=== PATIENT | male | born 1945 | race Caucasian/White ===

== ENCOUNTER 2017-07-15 20:34 | Inpatient (IN) | payer MEDICARE ==
[~2017-07-15] VITALS: Ht 175.3 cm; Wt 83.9 kg
[2017-07-15] MEDS ORDERED: LOSA100T36 PO (20:49)
[2017-07-15] MEDS ORDERED: LABE20TAB PO (20:49)
[2017-07-15] MEDS ORDERED: HYDR12.55 PO (20:49)
[2017-07-15] MEDS ORDERED: AMLO10TA2 PO (20:49)
[2017-07-15] MEDS ORDERED: BRIM1OPD OU (20:51)
[2017-07-15] MEDS ORDERED: BIMA01SOL OU (20:51)
[2017-07-15] MEDS ORDERED: TIMO0.5S4 OU (20:51)
[2017-07-15 21:41] LABS: BASO # 0.1 K/mm3 (0.0-0.2); BASO % 0.4 % (0.0-1.0); EOS # 0.3 K/mm3 (0.0-0.50); EOS % 1.7 % (0.0-3.0); LARGE UNSTAINED CELL # 0.1 K/mm3 (0.0-0.4); LARGE UNSTAINED CELL % 0.4 % (0.0-4.0); LYMPH % 6.3 % (24.0-44.0); MEAN CORPUSCULAR HEMOGLOBIN 30.6 pg (27.0-33.0); MEAN CORPUSCULAR HGB CONC 33.7 g/dl (32.0-36.5); MEAN CORPUSCULAR VOLUME 90.6 fl (80.0-96.0); MONO # 0.7 K/mm3 (0.0-0.8); MONO % 4.8 % (0.0-5.0); NEUTROPHILS # 13.3 K/mm3 (1.8-7.7); NEUTROPHILS % 86.5 % (36.0-66.0); PLATELET COUNT, AUTOMATED 224 k/mm3 (150-450); WHITE BLOOD COUNT 15.4 K/mm3 (4.0-10.0)
[2017-07-15 21:59] LABS: ALBUMIN 3.9 GM/DL (3.2-5.2); ALBUMIN/GLOBULIN RATIO 1.03 (1.00-1.93); ALKALINE PHOSPHATASE 77 U/L (45-117); ALT/SGPT 39 U/L (12-78); ANION GAP 6 MEQ/L (8-16); AST/SGOT 29 U/L (15-37); BILIRUBIN,TOTAL 0.4 MG/DL (0.2-1.0); BLOOD UREA NITROGEN 18 MG/DL (7-18); CALCIUM LEVEL 8.9 MG/DL (8.8-10.2); CARBON DIOXIDE LEVEL 27 MEQ/L (21-32); CHLORIDE LEVEL 107 MEQ/L (98-107); CREATININE FOR GFR 0.88 MG/DL (0.70-1.30); GLOMERULAR FILTRATION RATE > 60.0 (>42); GLUCOSE, FASTING 120 MG/DL (83-110); POTASSIUM SERUM 4.3 MEQ/L (3.5-5.1); SODIUM LEVEL 140 MEQ/L (136-145); TOTAL PROTEIN 7.7 GM/DL (6.4-8.2)
[2017-07-15] MEDS ORDERED: ISOVUE-370 76% 100ML VIAL (Q9967) As Ordered ONE (22:01)
[2017-07-15] MEDS ORDERED: PERCOCET 5MG/325MG TAB PO ONE (22:45)
--- NOTE | 2017-07-15 22:50 | REP ---
Clinical: Acute lower abdominal pain. Technique: Axial contrast enhanced images from the lung bases to the pubic symphysis using oral and 100 ml Isovue 370 intravenous contrast material with coronal and sagittal re-formations. Impression: Moderate amount of inflammatory stranding surrounds the pancreas and duodenum with small amounts of fluid extending into the pelvis. The pancreatic parenchyma is homogeneous and without evidence for necrosis, cystic change or obvious low density mass lesion. No drainable collection or abscess is identified. No free air to suggest perforation. Liver, spleen, gallbladder, bilateral adrenal glands and kidneys are normal. The enteric system is without obstruction or further acute inflammatory process. Normal terminal ileum is identified in the right lower quadrant a dilated fecal filled appendix measuring 14 mm in the right lower quadrant cannot be excluded (images 97 - 109) but without significant periappendiceal stranding. Pelvis demonstrates normal bladder and enlarged prostate gland which measures 4.8 cm maximal diameter. Atherosclerotic changes of the aorta and vasculature noted without aneurysm. Musculoskeletal structures demonstrate age-related degenerative changes without focal osseous abnormality. Impression: 1. Peripancreatic and duodenal inflammatory stranding with small amount of fluid extending into the pelvis is most compatible with acute pancreatitis/duodenitis. No evidence for drainable collection/abscess, pancreatic necrosis or ischemia. 2. A distended fecal filled appendix measuring 14 mm diameter is identified in the right lower quadrant without significant periappendiceal stranding to suggest acute appendicitis. However, close clinical observation may be warranted. Signed by Gordo Hansen MD 07/15/2017 10:41 P
[2017-07-15] MEDS ORDERED: NS 1,000 ML IV ONE (23:15)
[2017-07-15] MEDS ORDERED: ONDANSETRON 4MG/2ML VIAL (J2405) IV ONE (23:15)
[2017-07-15 23:17] LABS: AMYLASE 967 U/L (25-115)
[2017-07-15] MEDS ORDERED: ALPH0.156 OU (23:53)
[2017-07-15] MEDS ORDERED: FAMO20TA PO (23:53)
[2017-07-16] MEDS ORDERED: PERCOCET 5MG/325MG TAB PO ONE (00:30)
[2017-07-16] MEDS ORDERED: MORPHINE 2 MG/ML 1ML SYRINGE IV PRN (01:30)
[2017-07-16] MEDS ORDERED: ACETAMINOPHEN TAB 650MG DOSE (2X325MG) PO PRN (01:30)
[2017-07-16] MEDS: NS 1,000 ML IV SCH ×6 (03:38→22:43)
[2017-07-16] MEDS: amLODIPine 10 MG TAB PO SCH ×2 (03:39→21:10)
[2017-07-16] MEDS: LOSARTAN 50 MG TAB PO SCH ×2 (03:39→21:10)
--- NOTE | 2017-07-16 03:51 | HPEPDOC ---
General Date of Admission 07/16/17 Primary Care Physician: Mohan Gutierrez Attending Physician: JANNET VERGARA DO Chief Complaint The patient is a 72-year-old male admitted with a reason for visit of Abd Pain. History of Present Illness Patient is a 72 yo male with past medical history significant for HTN and increased intraocular eye pressure presents to the ER with abdominal pain. The pain started yesterday morning, 07/15/17. Just all of a sudden. Patient was not doing anything at the time. 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 Has had bloating and burping for past several days. Asked if he was hydrating, mentioned probably not enough. Denies having pain like this before. Described the pain as "wanting to throw up". Admits to nausea but no vomiting. The pain started upper abdomen and sides but now is mostly lower abdomen. Denies it radiating anywhere. Patient tried cuate seltzer and Rolaids, did not help much. Had a small BM this morning and one yesterday. Denies blood or black stool. Usually goes everyday. Noted that his BMs for past couple days have been smaller than normal. Denies diarrhea. Did not try anything at home for the pain. Has not had much to eat yesterday. Had half cup coffee and half bagel this morning. Last thing he ate was mary anne vickie and slice of toast in the evening yesterday. Has had stomach aches and cramps in the past but usually go away with some pepto bismol, never had discomfort like this. Ct scan of abdomen and pelvis was performed in ER. Showed peripancreatic and duodenal inflammatory stranding with small amount of fluid extending into the pelvis. No evidence of pancreatic abscess or necrosis. Patient received some Percocet in the ER. States that it does help some but still has pain. He also received Zofran in the ER for the nausea. Patient was admitted to hospitalist service. Home Medications Scheduled Amlodipine Besylate (Amlodipine Besylate) 10 Mg Tab, 10 MG PO QHS, (Reported) Bimatoprost (Lumigan) 50 Drop/2.5 Ml Niurka, 1 DROP OU QHS, (Reported) Brimonidine Tartrate 0.1% (Alphagan P) 100 Drop/5 Ml Soln, 1 DROP OU BID, ( Reported) Famotidine (Pepcid) 20 Mg Tab, 20 MG PO BID, (Reported) Labetalol HCl (Labetalol HCl) 200 Mg Tab, 200 MG PO BID, (Reported) Losartan Potassium (Losartan Potassium) 100 Mg Tab, 100 MG PO QHS, (Reported) Timolol Maleate (Timoptic) 0.5 % Niurka, 1 DROP OU BID, (Reported) Allergies Coded Allergies: No Known Allergies (Unverified , 07/15/17) Past Medical History Medical History Hypertension High eye pressure Surgical History Eye surgery, 1950 Social History Patient is 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 Now for hobby has a small barn with some heifers. Denies daily etoh use. Last 20 years drinks a bottle of beer every 1-3 months. Former smoker, quit in his early 40s, smoked 1 PPD for 20 years. Denies illegal or illicit drugs. Denies marijuana. No cats or dogs. Denies recent travel. No sick contacts. Lives at home with . Has son that lives in [place], [place]. Review of Symptoms Other systems Gen.:No fevers. Admits to chills, rigors. Head: No headache, trauma. Eyes:Wears glasses. No blurriness or double vision. Nose:No rhinorrhea. Ears:No change in hearing. Throat: No painful or difficulty swallowing. Cardiovascular: No chest pains. Does feel skipped beat every now and then. Respiratory:No shortness of breath, cough. Abdomen:Pos per HPI. :No dysuria, frequency. No hematuria. Extremity:No weakness. MSK:Aches and pains all over. Neuro:No numbness. Psych:No anxiety, depression. Physical Examination General Exam: Positive: Alert, Cooperative, No Acute Distress Eye Exam: Positive: PERRLA, Conjunctiva & lids normal, EOMI, Negative: Sclera icteric, Ptosis ENT Exam: Positive: Atraumatic, Pharynx Normal, Tongue Midline, Nares Patent, Negative: Mucous membr. moist/pink Neck Exam: Positive: Supple, Negative: JVD, thyromegaly Chest Exam: Positive: Clear to auscultation, Normal air movement, Negative: Rales, Rhonchi Heart Exam: Positive: Murmurs (Systolic murmur, 2/6. Best heard right sternal border. ) Abdomen Exam: Positive: Normal bowel sounds, Soft, Tenderness (Diffuse tenderness.), Other (No rigidity or guarding. ), Negative: Hepatospenomegaly Extremity Exam: Positive: Normal pulses, Negative: Clubbing, Cyanosis, Edema Skin Exam: Positive: Nl turgor and temperature, Negative: Rash, Breakdown Neuro Exam: Positive: Normal Gait, Normal Speech Psych Exam: Positive: Mental status NL Vital Signs Vital Signs Date Time Temp Pulse Resp B/P (MAP) Pulse Ox O2 Delivery O2 Flow Rate FiO2 07/16/17 00:24 18 07/15/17 21:38 07/15/17 20:34 98.4 69 98 Room Air Laboratory Data Labs 24H Laboratory Tests 2 07/15/17 21:22: White Blood Count 15.4H, Red Blood Count 4.99, Hemoglobin 15.3, Hematocrit 45.3 , Mean Corpuscular Volume 90.6, Mean Corpuscular Hemoglobin 30.6, Mean Corpuscular Hemoglobin Concent 33.7, Red Cell Distribution Width 13.0, Platelet Count 224, Neutrophils (%) (Auto) 86.5H, Lymphocytes (%) (Auto) 6.3L, Monocytes (%) (Auto) 4.8, Eosinophils (%) (Auto) 1.7, Basophils (%) (Auto) 0.4, Neutrophils # (Auto) 13.3H, Lymphocytes # (Auto) 1.0L, Monocytes # (Auto) 0.7, Eosinophils # (Auto) 0.3, Basophils # (Auto) 0.1, Large Unclassified Cells % 0.4 , Large Unclassified Cells # 0.1, Anion Gap 6L, Glomerular Filtration Rate > 60.0, Blood Urea Nitrogen 18, Creatinine 0.88, Sodium Level 140, Potassium Level 4.3, Chloride Level 107, Carbon Dioxide Level 27, Calcium Level 8.9, Aspartate Amino Transf (AST/SGOT) 29, Alanine Aminotransferase (ALT/SGPT) 39, Alkaline Phosphatase 77, Total Bilirubin 0.4, Total Protein 7.7, Albumin 3.9, Albumin/Globulin Ratio 1.03, Amylase Level 967H, Lipase 9553H CBC/BMP Laboratory Tests 07/15/17 21:22 Red Blood Count 4.99, Mean Corpuscular Volume 90.6, Mean Corpuscular Hemoglobin 30.6, Mean Corpuscular Hemoglobin Concent 33.7, Red Cell Distribution Width 13.0 , Neutrophils (%) (Auto) 86.5 H, Lymphocytes (%) (Auto) 6.3 L, Monocytes (%) ( Auto) 4.8, Eosinophils (%) (Auto) 1.7, Basophils (%) (Auto) 0.4, Neutrophils # ( Auto) 13.3 H, Lymphocytes # (Auto) 1.0 L, Monocytes # (Auto) 0.7, Eosinophils # (Auto) 0.3, Basophils # (Auto) 0.1, Calcium Level 8.9, Aspartate Amino Transf ( AST/SGOT) 29, Alanine Aminotransferase (ALT/SGPT) 39, Alkaline Phosphatase 77, Total Bilirubin 0.4, Total Protein 7.7, Albumin 3.9 Assessment/Plan Pancreatitis Most likely cause of patient's abdominal pain and nausea. Patient has elevated amylase and lipase as well as evidence on CT scan of abdomen and pelvis. Ordering C reactive protein. Trend this for sign of inflammation. Patient has leukocytosis. Following WBC count, repeat in the morning. Checking lactic acid. Patient has had some bloating and belching. Placing NG tube to decompress abdomen. NPO diet. IV fluids normal saline. Item Value Date Time Amylase Level 967 U/L H 07/15/172121 Lipase 9553 U/L H 07/15/172121 Ordering triglyceride level as possible cause of pancreatitis. Patient denies drinking etoh, only drinks once every couple months. On ct scan with iv contrast the enteric system is without obstruction or further acute inflammatory process. LFTs within normal limits. Patient's calcium was within normal limits. No symptoms of hypercalcemia. Duodenitis May also be cause of patient's abdominal pain. Patient had evidence of duodenal inflammation on CT scan. Ordering Helicobacter pylori stool sample and starting patient on protonix. H. pylori is a possible cause of duodenitis. Another cause is possible bacterial infection. Starting patient on cipro and flagyl. Blood cultures x2 pending. Leukocytosis Most likely secondary to pancreatitis/duodenitis. Repeat in the morning. Item Value Date Time White Blood Count 15.4 K/mm3 H 07/15/172121 Heart Murmur Patient has a murmur heard on exam. Does not remember being told has a murmur. Does not remember having ECHO in past. Possible new onset murmur. Ordering ECHO. HTN Continue patient's home medications amlodipine, lorsartan, labetolol. Monitor BP. Increased eye pressure Patient follows up with eye center. Continue home medications. Plan / VTE VTE Prophylaxis Ordered?: Yes (Teds. Cameronx. ) Plan Plan Obtaining recent progress from Dr. Gutierrez's office. Patient is currently NPO. Patient will be followed by on 07/16/17. GME ATTESTATION GME ATTESTATION My preceptor for this patient encounter was physically present in the building during the encounter and was fully available. As needed, all aspects of the patient interview, examination, medical decision making process, and medical care plan development were reviewed and approved by the preceptor. Preceptor is aware and concurs with the plan as stated in the body of this note and will attest to such by his/her cosignature. PRISCILLA YEUNG DO Jul 16, 2017 02:38
[2017-07-16 04:00] VITALS: BP 178/78
[2017-07-16] MEDS ORDERED: metroNIDAZOLE 500 MG in APPROPRIATE DILUENT 1 EA IV SCH (04:00)
[2017-07-16] MEDS ORDERED: CIPROFLOXACIN 400 MG in APPROPRIATE DILUENT 1 EA IV SCH (05:00)
[2017-07-16 06:00] VITALS: BP 148/78
[2017-07-16 06:48] LABS: BASO # 0.1 K/mm3 (0.0-0.2); BASO % 0.5 % (0.0-1.0); EOS % 0.3 % (0.0-3.0); LARGE UNSTAINED CELL # 0.1 K/mm3 (0.0-0.4); LARGE UNSTAINED CELL % 0.6 % (0.0-4.0); LYMPH # 1.1 K/mm3 (1.5-4.5); LYMPH % 8.5 % (24.0-44.0); MEAN CORPUSCULAR HEMOGLOBIN 31.3 pg (27.0-33.0); MEAN CORPUSCULAR HGB CONC 34.8 g/dl (32.0-36.5); MEAN CORPUSCULAR VOLUME 89.9 fl (80.0-96.0); MONO # 0.7 K/mm3 (0.0-0.8); MONO % 5.2 % (0.0-5.0); NEUTROPHILS # 10.9 K/mm3 (1.8-7.7); PLATELET COUNT, AUTOMATED 211 k/mm3 (150-450); RED CELL DISTRIBUTION WIDTH 12.8 % (11.5-14.5); WHITE BLOOD COUNT 12.9 K/mm3 (4.0-10.0)
[2017-07-16 07:11] LABS: ALBUMIN 3.3 GM/DL (3.2-5.2); ALBUMIN/GLOBULIN RATIO 1.14 (1.00-1.93); ALKALINE PHOSPHATASE 61 U/L (45-117); ALT/SGPT 29 U/L (12-78); AMYLASE 979 U/L (25-115); ANION GAP 9 MEQ/L (8-16); AST/SGOT 20 U/L (15-37); BILIRUBIN,TOTAL 0.5 MG/DL (0.2-1.0); BLOOD UREA NITROGEN 19 MG/DL (7-18); CALCIUM LEVEL 8.4 MG/DL (8.8-10.2); CARBON DIOXIDE LEVEL 26 MEQ/L (21-32); CHLORIDE LEVEL 108 MEQ/L (98-107); CREATININE FOR GFR 0.77 MG/DL (0.70-1.30); GLOMERULAR FILTRATION RATE > 60.0 (>42); GLUCOSE, FASTING 106 MG/DL (83-110); POTASSIUM SERUM 3.9 MEQ/L (3.5-5.1); SODIUM LEVEL 143 MEQ/L (136-145); TOTAL PROTEIN 6.2 GM/DL (6.4-8.2)
[2017-07-16] MEDS: MEROPENEM INJ 1 GM in D5W MINI-BAG PLUS 100 ML IV SCH ×3 (08:07→23:32)
[2017-07-16] MEDS: PANTOPRAZOLE 40MG INJ (PROTONIX) (C9113) IV SCH ×2 (09:39→21:11)
[2017-07-16] MEDS: ONDANSETRON 4MG/2ML VIAL (J2405) IV PRN (09:39)
[2017-07-16] MEDS: PERCOCET 5MG/325MG TAB PO PRN (09:39)
[2017-07-16] MEDS: BRIMONIDINE 0.1% OPHTH SOLN 5 ML OU SCH ×2 (09:44→21:10)
[2017-07-16] MEDS: LABETALOL 200 MG TAB PO SCH ×2 (09:44→21:10)
[2017-07-16] MEDS: TIMOLOL MALEATE 0.5% OPHTH SOLN 5 ML OU SCH ×2 (09:44→21:00)
--- NOTE | 2017-07-16 09:44 | REP ---
Clinical: Abdominal pain. Acute pancreatitis. Technique: Real time kim scale evaluation using curved array transducer. Findings: Liver is normal in contour, size, echogenicity without focal hepatic lesion identified. The gallbladder is unremarkable and without gallstones, wall thickening, or sonographic Armas sign. Trace pericholecystic fluid likely related to known pancreatitis. No biliary ductal dilatation is appreciated and the common bile duct measures 6.9 mm diameter. The right kidney is normal in reniform shape without hydronephrosis and measures 10.7 x 6.3 x 5.9 cm. Pancreas is incompletely evaluated due to interposed bowel gas. Impression: Normal appearance to the liver, gallbladder, and right kidney. Pancreas is incompletely evaluated due to interposed bowel gas. Trace fluid adjacent to the gallbladder. Signed by Gordo Hansen MD 07/16/2017 09:36 A
[2017-07-16] MEDS: ENOXAPARIN 40 MG/0.4 ML SYRINGE (J1650) SC SCH (09:46)
[2017-07-16 10:29] LABS: CONTROL LINE HPYORI INT CTR LINE PRESENT
--- NOTE | 2017-07-16 12:41 | REP ---
Clinical: Foreign body. Technique: Single supine view of the abdomen and pelvis demonstrates relatively nonspecific bowel gas pattern. Contrast noted in the bladder. No metallic foreign body appreciated. Skeletal structures demonstrate age-related degenerative changes. Impression: Nonspecific bowel gas pattern. No foreign body identified. Signed by Gordo Hansen MD 07/16/2017 12:32 P
--- NOTE | 2017-07-16 12:42 | REP ---
Clinical: Foreign body . Comparison: 02/14/2011 . Technique: PA and lateral. Findings: The mediastinum and cardiac silhouette are normal. The lung gan are clear and without acute consolidation, effusion, or pneumothorax. The skeletal structures are intact and normal. No foreign body identified. Impression: 1. No acute cardiopulmonary process. 2. No foreign body identified. Signed by Gordo Hansen MD 07/16/2017 12:34 P
--- NOTE | 2017-07-16 12:58 | IPN ---
DATE OF SERVICE: 07/16/2017 The patient was seen and examined, admitted last night. The patient admitted overnight with reported improved abdominal pain and improved nausea. No vomiting. Has not had a bowel movement in 3 days. Denies any chest pain, pressure, or discomfort, fevers, or chills. Vital signs: Temperature 98.8, pulse 80, respiration 18, blood pressure 162/76, pulse oximetry 95% on room air. Laboratory: WBC 12.9, hemoglobin and hematocrit 14.3/41, platelets 211. Chemistry: Sodium 143, potassium 3.9, chloride 108, bicarbonate 26, BUN 19, creatinine 0.77, C-reactive protein 3.47, lipase 6845. General: The patient alert and oriented times three. No acute distress. HEENT: Normocephalic, atraumatic. Pulmonary: Bilaterally clear to auscultation. Cardiac: Regular rate and rhythm. 2/6 systolic murmur. Abdomen: Soft, hypoactive bowel sounds, tympanitic to percussion. No rebound. No guarding. Diffuse tenderness to palpation, predominantly upper abdominal quadrants. Extremities: No clubbing, cyanosis, or edema. Assessment and plan: This is a 72-year-old male patient with underlying medical history of hypertension with history of increased intraocular pressures in the eyes, possibly glaucoma, presented to the emergency department (ED) with sudden onset of nausea and abdominal pain, achy and crampy in nature. Problems: 1. Pancreatitis. The patient with elevated amylase and lipase with epigastric abdominal pain. Intravenous (IV) fluids. Nothing by mouth for now. Lactic acid appreciated. C-reactive protein appreciated. Empirically started on meropenem. The patient has no history of alcohol use. Liver function test within normal limits. Ultrasound of right upper quadrant appreciated. No stones detected. No biliary dilatation. 2. Duodenitis. Have maybe evidence on CT scan. Possibly the inciting event of pancreatitis, given the patient's duodenum on CT scan appears to be inflamed. Helicobacter (H.) pylori immunoglobulin G (IgG) is positive. Empirically started on clarithromycin, and the patient is already on meropenem and Protonix. Once the patient's symptoms improve, will switch from meropenem to amoxicillin for a 14-day course. Followup blood culture. General surgery consulted. 3. Ileus. Nothing by mouth for now. Monitor bowel sounds. General surgery consulted. CT scan appreciated. 4. Leukocytosis, likely secondary to pancreatitis and duodenitis. IV fluids as ordered. Followup cultures. 5. Hypertension. Continue current medication. The patient on amlodipine and losartan and labetalol. Monitor blood pressure. 6. History of glaucoma. Continue home medication. Outpatient followup. 7. Dilated appendix with fecal matters in the appendix. No evidence of acute appendicitis on CT scan. Consulted general surgery for close monitoring. As per Dr. Lew, the patient likely needs a colonoscopy as outpatient. Will followup surgery recommendation. 8. Deep venous thrombosis (DVT) prophylaxis. Lovenox subcutaneous. DISPOSITION PLANNING: Pending clinical improvement.
[2017-07-16 14:00] VITALS: BP 153/72
--- NOTE | 2017-07-16 14:31 | ECHO ---
DATE OF PROCEDURE: 07/16/2017 REFERRING PHYSICIAN: Michael Stewart DO and Gisella May MD. Study was performed on 07/16/2017 for indication heart murmur. Patient measures 69 inches and weighs 185 pounds. DIMENSIONS: IVS 0.9 LV 4.9 LVPW 1.1 LA 4.0 Aorta 3.6 Ascending aorta 3.8 RV 2.8 FINDINGS: The study is of good technical quality. Left ventricle is of normal size and systolic function with estimated left ventricular ejection fraction (LVEF) 60-65%. Right ventricle is also normal size and systolic function. Left atrium is mildly enlarged. Right atrium is probably normal. Aortic valve is mildly sclerotic, but it has three cusps and grossly preserved mobility. Mitral tricuspid valves appear normal. Pulmonic valve was not well seen. No pericardial effusion is noted. Inferior vena cava is mildly dilated but does collapse with respiration indicative of likely mildly elevated central venous pressure. Mildly dilated ascending aorta (3.8cm). Doppler interrogation of aortic valve reveals mild insufficiency and trivial stenosis (mean gradient 11 mmHg). There is trace mitral insufficiency and trace tricuspid insufficiency. Calculated pulmonary artery pressure is around 40 mmHg. Mitral inflow pattern and tissue Doppler imaging of mitral annulus reveal grade 1 diastolic dysfunction (tissue Doppler velocities are relatively preserved. E prime septal and lateral are 3.7 and 10.2 cm/s, respectively). CONCLUSIONS: 1. Study is of good technical quality. 2. Normal left ventricular (LV) size and systolic function, grade 1 diastolic dysfunction. 3. Aortic sclerosis resulting in minimal stenosis and mild insufficiency. 4. Trace mitral and tricuspid insufficiency. 5. Probably mildly elevated central venous pressure (CVP) and at least mild and more likely moderate pulmonary hypertension. 6. Mildly dilated ascending aorta (3.8cm). COMMENT: Subacute bacterial endocarditis (SBE) prophylaxis not recommended. MTDD
--- NOTE | 2017-07-16 16:48 | REP ---
Clinical: Acute pancreatitis. Technique: Noncontrast MRCP. Findings: Inflammatory stranding and scattered fluid is identified within the visualized upper abdomen extending along the bilateral visualized pericolic gutters predominately surrounding the body and tail of the pancreas and consistent with acute pancreatitis. No focal drainable collection is appreciated. Evaluation of the biliary system demonstrates normal gallbladder and biliary tree including intrahepatic and extrahepatic biliary duct through the head of the pancreas. No evidence for cholelithiasis or choledocholithiasis is appreciated and no significant gallbladder wall thickening is identified. Impression: 1. Inflammatory stranding and scattered fluid in the visualized upper abdomen extending along the bilateral pericolic gutters consistent with a history of acute pancreatitis. No drainable collection or obvious cystic lesions are appreciated. 2. Normal appearance to the gallbladder and biliary system without evidence for cholelithiasis or choledocholithiasis. Signed by Gordo Hansen MD 07/16/2017 04:40 P
[2017-07-16] MEDS: CLARITHROMYCIN 250 MG TAB PO SCH (21:10)
[2017-07-16 22:00] VITALS: BP 153/75
[2017-07-17] MEDS: NS 1,000 ML IV SCH ×4 (02:55→13:45)
[2017-07-17 06:00] VITALS: BP 138/65
[2017-07-17 06:05] LABS: BASO % 0.2 % (0.0-1.0); EOS # 0.1 K/mm3 (0.0-0.50); EOS % 0.4 % (0.0-3.0); LARGE UNSTAINED CELL # 0.1 K/mm3 (0.0-0.4); LARGE UNSTAINED CELL % 0.9 % (0.0-4.0); LYMPH # 1.3 K/mm3 (1.5-4.5); LYMPH % 8.1 % (24.0-44.0); MEAN CORPUSCULAR HEMOGLOBIN 31.8 pg (27.0-33.0); MEAN CORPUSCULAR HGB CONC 35.1 g/dl (32.0-36.5); MEAN CORPUSCULAR VOLUME 90.5 fl (80.0-96.0); MONO % 6.2 % (0.0-5.0); NEUTROPHILS # 13.1 K/mm3 (1.8-7.7); NEUTROPHILS % 84.2 % (36.0-66.0); PLATELET COUNT, AUTOMATED 185 k/mm3 (150-450); RED CELL DISTRIBUTION WIDTH 12.7 % (11.5-14.5); WHITE BLOOD COUNT 15.6 K/mm3 (4.0-10.0)
[2017-07-17 06:23] LABS: ALBUMIN 2.7 GM/DL (3.2-5.2); ALBUMIN/GLOBULIN RATIO 0.87 (1.00-1.93); ALKALINE PHOSPHATASE 52 U/L (45-117); ALT/SGPT 23 U/L (12-78); ANION GAP 5 MEQ/L (8-16); AST/SGOT 21 U/L (15-37); BILIRUBIN,TOTAL 0.7 MG/DL (0.2-1.0); BLOOD UREA NITROGEN 16 MG/DL (7-18); CALCIUM LEVEL 7.7 MG/DL (8.8-10.2); CARBON DIOXIDE LEVEL 25 MEQ/L (21-32); CHLORIDE LEVEL 110 MEQ/L (98-107); CREATININE FOR GFR 0.76 MG/DL (0.70-1.30); GLOMERULAR FILTRATION RATE > 60.0 (>42); GLUCOSE, FASTING 80 MG/DL (83-110); POTASSIUM SERUM 3.7 MEQ/L (3.5-5.1); SODIUM LEVEL 140 MEQ/L (136-145); TOTAL PROTEIN 5.8 GM/DL (6.4-8.2)
[2017-07-17] MEDS: TIMOLOL MALEATE 0.5% OPHTH SOLN 5 ML OU SCH ×2 (09:00→20:05)
[2017-07-17] MEDS: BRIMONIDINE 0.1% OPHTH SOLN 5 ML OU SCH ×2 (09:19→20:05)
[2017-07-17] MEDS: CLARITHROMYCIN 250 MG TAB PO SCH ×2 (09:20→21:07)
[2017-07-17] MEDS: PANTOPRAZOLE 40MG INJ (PROTONIX) (C9113) IV SCH ×2 (09:20→21:07)
[2017-07-17] MEDS: MEROPENEM INJ 1 GM in D5W MINI-BAG PLUS 100 ML IV SCH ×3 (09:20→23:39)
[2017-07-17] MEDS: ENOXAPARIN 40 MG/0.4 ML SYRINGE (J1650) SC SCH (09:31)
[2017-07-17] MEDS: LABETALOL 200 MG TAB PO SCH ×2 (09:31→21:07)
--- NOTE | 2017-07-17 11:19 | IPN ---
DATE OF SERVICE: 07/17/2017 SUBJECTIVE: Patient feels a little better today. He said that he has been passing gas and also had a small bowel movement this morning. He does have a little soreness still in his belly but is improving. Did have a low grade fever this morning. No chest pain or shortness of breath. No nausea or vomiting or diarrhea. Patient has been tolerating sips of water. Says is starting to feel a little hungry. Will start the patient on clear liquids diet. If patient can tolerate clear liquids, will advance to full liquids during dinner. PHYSICAL EXAMINATION: Vital signs. Temperature 98.8, pulse 72, respiratory rate 18, blood pressure 162/76, pulse oximetry 95% in room air. General: Patient awake, alert, oriented times three, sitting up in bed, in no acute distress. HEENT: Normocephalic, atraumatic. Moist mucous membranes. Anicteric eyes. Chest: Clear to auscultation. Cardiovascular: S1, S2, regular. No rub, murmur or gallop. Abdomen: Soft. Mildly tender to deep palpation. No guarding or rigidity. Bowel sounds present. Extremities: No edema. LABORATORY DATA: WBC 15.6, hemoglobin 13.2, platelets 185. Sodium 140, potassium 3.7, chloride 110, bicarbonate 25, BUN 16, creatinine 0.7, glucose 80, calcium 7.7. Liver function tests are normal. Albumin 2.7. Lipase 1902. ASSESSMENT AND PLAN: This is a 72-year-old male admitted for acute pancreatitis. Plan: 1. Acute pancreatitis. Patient seems to be improving. Will advance diet to clear liquids. Decrease intravenous (IV) fluids. Empirically has been on meropenem. Once the patient is taking oral diet, will change him to oral antibiotics to cover for Helicobacter (H) pylori. Magnetic resonance cholangiopancreatography (MRCP) of the abdomen did not show any cholelithiasis or obstruction of the biliary system. There was no obstruction of the pancreatic duct system. Patient does not carry any history of alcohol abuse. At this point, the etiology of pancreatitis has not been found. Could be due to duodenitis with local inflammation of the duodenal wall causing obstruction of the opening of the pancreatic duct. 2. Duodenitis. As seen by seen CT scan. H pylori immunoglobulin G (IgG) has been positive in stool. Immunoglobulin M (IgM) is in process. Patient has been started on treatment for H pylori. Patient is on pantoprazole and clarithromycin, as well as on meropenem. Once meropenem is discontinued, we can change the patient oral amoxicillin to cover treatment for H pylori for a total of 14 day course. Blood cultures have been negative. 3. History of glaucoma. Will continue with home medications. 4. Dilated appendix with fecal matter. However, there are no signs of appendicitis in the CT scan. Patient was evaluated by Dr. Lew from surgery and as per him, patient needs a colonoscopy as an outpatient. 5. Hypertension. Will continue on amlodipine, losartan and labetalol. 6. Leukocytosis. Secondary to pancreatitis and duodenitis. Blood cultures have been negative to date. Will continue to monitor the leukocytosis. 7. Deep venous thrombosis (DVT) prophylaxis has been ordered. 8. Gastrointestinal (GI) prophylaxis. Patient is on pantoprazole twice a day. 9. Ileus. Improving. Will advance diet to clear liquids and if tolerates, will change to full liquids at dinner. MTDD
[2017-07-17 14:00] VITALS: BP 131/64
[2017-07-17] MEDS: ONDANSETRON 4MG/2ML VIAL (J2405) IV PRN (19:48)
[2017-07-17 21:00] VITALS: BP 156/74
[2017-07-17] MEDS: amLODIPine 10 MG TAB PO SCH (21:07)
[2017-07-17] MEDS: LOSARTAN 50 MG TAB PO SCH (21:08)
[2017-07-17] MEDS: PERCOCET 5MG/325MG TAB PO PRN (22:32)
[2017-07-18] MEDS: NS 1,000 ML IV SCH (04:56)
[2017-07-18 06:00] VITALS: BP 133/69
[2017-07-18 08:10] VITALS: BP 152/72
[2017-07-18 08:25] LABS: BASO % 0.2 % (0.0-1.0); EOS # 0.3 K/mm3 (0.0-0.50); EOS % 2.2 % (0.0-3.0); LARGE UNSTAINED CELL # 0.1 K/mm3 (0.0-0.4); LARGE UNSTAINED CELL % 0.8 % (0.0-4.0); LYMPH # 1.3 K/mm3 (1.5-4.5); LYMPH % 7.8 % (24.0-44.0); MEAN CORPUSCULAR HEMOGLOBIN 30.3 pg (27.0-33.0); MEAN CORPUSCULAR HGB CONC 33.2 g/dl (32.0-36.5); MEAN CORPUSCULAR VOLUME 91.1 fl (80.0-96.0); MONO % 6.3 % (0.0-5.0); NEUTROPHILS # 12.5 K/mm3 (1.8-7.7); NEUTROPHILS % 82.7 % (36.0-66.0); PLATELET COUNT, AUTOMATED 188 k/mm3 (150-450); RED CELL DISTRIBUTION WIDTH 12.8 % (11.5-14.5); WHITE BLOOD COUNT 15.1 K/mm3 (4.0-10.0)
[2017-07-18 09:16] LABS: ALBUMIN 2.6 GM/DL (3.2-5.2); ALBUMIN/GLOBULIN RATIO 0.76 (1.00-1.93); ALKALINE PHOSPHATASE 51 U/L (45-117); ALT/SGPT 21 U/L (12-78); ANION GAP 7 MEQ/L (8-16); AST/SGOT 28 U/L (15-37); BILIRUBIN,TOTAL 0.7 MG/DL (0.2-1.0); BLOOD UREA NITROGEN 14 MG/DL (7-18); CARBON DIOXIDE LEVEL 25 MEQ/L (21-32); CHLORIDE LEVEL 109 MEQ/L (98-107); CREATININE FOR GFR 0.75 MG/DL (0.70-1.30); GLOMERULAR FILTRATION RATE > 60.0 (>42); GLUCOSE, FASTING 96 MG/DL (83-110); POTASSIUM SERUM 3.7 MEQ/L (3.5-5.1); SODIUM LEVEL 141 MEQ/L (136-145)
[2017-07-18] MEDS: CLARITHROMYCIN 250 MG TAB PO SCH ×2 (09:44→20:42)
[2017-07-18] MEDS: LABETALOL 200 MG TAB PO SCH ×2 (09:44→20:42)
[2017-07-18] MEDS: BRIMONIDINE 0.1% OPHTH SOLN 5 ML OU SCH ×2 (09:44→20:43)
[2017-07-18] MEDS: ENOXAPARIN 40 MG/0.4 ML SYRINGE (J1650) SC SCH (09:44)
[2017-07-18] MEDS: TIMOLOL MALEATE 0.5% OPHTH SOLN 5 ML OU SCH ×2 (09:45→20:43)
[2017-07-18] MEDS: PANTOPRAZOLE 40MG TAB (PROTONIX) PO SCH ×2 (09:48→20:40)
[2017-07-18] MEDS: AMOXICILLIN 500 MG CAP PO SCH ×2 (09:59→20:42)
--- NOTE | 2017-07-18 10:20 | IPN ---
DATE: 07/18/2017 SUBJECTIVE: The patient was seen and examined this morning. The patient said that he is feeling a lot better. He has been tolerating his full liquid diet and has been advanced to a 2 gram sodium diet. The patient states that last night, he had one episode of pain in his abdomen that needed pain medication. But since this morning, he has been feeling like he did before he got sick. The patient is able to ambulate around the room without any shortness of breath, chest pain or chest discomfort. The patient states he just has a dull achy pain in his abdomen that is currently manageable without any medication. The patient denies any nausea, vomiting or diarrhea. He admits to having two bowel movements two days prior. Per nursing, they had no overnight events. The patient's IV sites were blown. All of his IV medications were converted to by mouth medications and his diet has been advanced from a full liquid diet to a 2 gram sodium diet. OBJECTIVE: VITALS: Temperature 99.4, afebrile overnight. Pulse 81, respiratory rate of 18 , blood pressure 152/72 (98). Pulse oximetry of 97 on room air. GENERAL: Patient is awake, alert and oriented times three, sitting up in the bed in no acute distress. HEENT: Normocephalic atraumatic. Moist mucous membranes. CARDIOVASCULAR: S1, S2, regular sinus rhythm. No rubs, murmurs, or gallops are appreciated. CHEST: Clear to auscultation bilaterally. No rhonchi or wheezing. ABDOMEN: Positive bowel sounds in all four quadrants. Slightly distended abdomen which the patients states is improving. No tenderness on soft palpation. The patient states he just has a dull achy pain at the epigastric area that is improving. No guarding or rigidity. EXTREMITIES: No peripheral edema appreciated. LABS: WBC 15.1, hemoglobin 12.6, hematocrit 37.8, platelets 188, neutrophils 82.7, lymphocytes 7.8, monocytes of 6.2. Chemistries: Sodium 141, potassium 2.7, chloride 109, carbon dioxide 25, BUN 14, creatinine of 0.75, anion gap 7, fasting glucose 96, calcium 8.0, total bilirubin 0.7, AST 28, ALT 21, alkaline phosphatase of 51. Total protein 6.0, and albumin 2.6, lipase 594. Blood cultures: No growth after 48 hours. No new imaging was done. ASSESSMENT: This is a 72-year-old male admitted for acute pancreatitis. PLAN: 1. Acute pancreatitis: The patient is currently improving. Is tolerating a full liquid diet. Has advanced diet to 2 gram sodium diet. Empirically has been covered with meropenem which has been stopped this morning. Has started patient on amoxicillin 1 gram twice a day for the next 14 days for coverage of H pylori. Magnetic resonance cholangiopancreatography MRCP of the abdomen did not show any cholelithiasis or obstruction of the biliary system. There was no obstruction of the pancreatic duct system. The patient does not have any history of any alcohol abuse. At this point, we cannot find the etiology of the pancreatitis It could be due to a local inflammation of the duodenal wall causing an obstruction of the opening of the pancreatic duct. Will review patient home medication list to rule out medication induced pancreatitis 2. Duodenitis: As was seen on the CT, H pyloric immunoglobulin G has been positive in stool. Immunoglobulin M is current still on process. The patient has been started on a treatment for H pyloric. He is currently on pantoprazole and clindamycin. Meropenem has been discontinued. Started the patient with amoxicillin for 14 days for triple therapy coverage. Blood cultures are currently negative with no growth for the past 48 hours. 3. History of glaucoma: Will continue home medication. 4. Dilated appendix with fecal matter. There is no sign of appendicitis on a CT scan. The patient was evaluated by Dr. Lew for surgery and, per him, will have a colonoscopy outpatient. 5. Hypertension: Will continue on the patient's amlodipine. Will start him on labetalol. 6. Leukocytosis: Likely secondary to pancreatitis and duodenitis currently stable at 15.1. Will continue to monitor. Blood cultures have been negative to this date and patient is getting antibiotic coverage. 7. Deep venous thrombosis (DVT) prophylaxis: Patient is ambulating around the room. Denies any chest pain or shortness of breath. The patient does have thromboembolic deterrent stockings (TEDS) orders. 8. GI prophylaxis: The patient is currently on pantoprazole by mouth twice a day 40 mg. 9. Ileus: Currently improving. Will currently advance diet to 2 gm sodium diet. My preceptor for this patient encounter was Dr. Jamal Beth. The preceptor was physically present in the building during the encounter and was fully available. As needed, all aspects of the patient interview, examination, medical decision making process, and medical care plan development were reviewed and approved by the preceptor. The preceptor is aware and concurs with the plan as stated in the body of this note and will attest to such by his/her cosignature. SABA
[2017-07-18 14:30] VITALS: BP 163/75
[2017-07-18] MEDS: PERCOCET 5MG/325MG TAB PO PRN (16:54)
[2017-07-18] MEDS: amLODIPine 10 MG TAB PO SCH (20:41)
[2017-07-18] MEDS: LOSARTAN 50 MG TAB PO SCH (20:42)
[2017-07-18 22:00] VITALS: BP 149/74
[2017-07-19 06:00] VITALS: BP 150/73
[2017-07-19 06:55] LABS: BASO % 0.3 % (0.0-1.0); EOS # 0.3 K/mm3 (0.0-0.50); EOS % 1.9 % (0.0-3.0); LARGE UNSTAINED CELL # 0.2 K/mm3 (0.0-0.4); LARGE UNSTAINED CELL % 1.2 % (0.0-4.0); LYMPH # 1.3 K/mm3 (1.5-4.5); LYMPH % 9.4 % (24.0-44.0); MEAN CORPUSCULAR HEMOGLOBIN 31.6 pg (27.0-33.0); MEAN CORPUSCULAR HGB CONC 35.5 g/dl (32.0-36.5); MONO # 0.9 K/mm3 (0.0-0.8); MONO % 6.1 % (0.0-5.0); NEUTROPHILS # 11.5 K/mm3 (1.8-7.7); NEUTROPHILS % 81.1 % (36.0-66.0); PLATELET COUNT, AUTOMATED 210 k/mm3 (150-450); RED CELL DISTRIBUTION WIDTH 12.4 % (11.5-14.5); WHITE BLOOD COUNT 14.2 K/mm3 (4.0-10.0)
[2017-07-19 07:16] LABS: ALBUMIN 2.7 GM/DL (3.2-5.2); ALBUMIN/GLOBULIN RATIO 0.77 (1.00-1.93); ALKALINE PHOSPHATASE 59 U/L (45-117); ALT/SGPT 24 U/L (12-78); ANION GAP 6 MEQ/L (8-16); AST/SGOT 26 U/L (15-37); BILIRUBIN,TOTAL 0.8 MG/DL (0.2-1.0); BLOOD UREA NITROGEN 18 MG/DL (7-18); CALCIUM LEVEL 8.3 MG/DL (8.8-10.2); CARBON DIOXIDE LEVEL 27 MEQ/L (21-32); CHLORIDE LEVEL 106 MEQ/L (98-107); GLOMERULAR FILTRATION RATE > 60.0 (>42); GLUCOSE, FASTING 96 MG/DL (83-110); POTASSIUM SERUM 3.5 MEQ/L (3.5-5.1); SODIUM LEVEL 139 MEQ/L (136-145); TOTAL PROTEIN 6.2 GM/DL (6.4-8.2)
[2017-07-19 08:16] VITALS: BP 152/81
[2017-07-19] MEDS: PANTOPRAZOLE 40MG TAB (PROTONIX) PO SCH (08:46)
[2017-07-19] MEDS: CLARITHROMYCIN 250 MG TAB PO SCH (08:46)
[2017-07-19 08:47] VITALS: BP 152/81
[2017-07-19] MEDS: LABETALOL 200 MG TAB PO SCH (08:47)
[2017-07-19] MEDS: AMOXICILLIN 500 MG CAP PO SCH (08:47)
[2017-07-19] MEDS: BRIMONIDINE 0.1% OPHTH SOLN 5 ML OU SCH (08:47)
[2017-07-19] MEDS: TIMOLOL MALEATE 0.5% OPHTH SOLN 5 ML OU SCH (08:48)
[2017-07-19] MEDS: ENOXAPARIN 40 MG/0.4 ML SYRINGE (J1650) SC SCH (08:51)
[2017-07-19] MEDS ORDERED: AMOX500C PO (10:28)
[2017-07-19] MEDS ORDERED: BIAX250T10 PO (10:28)
[2017-07-19] MEDS ORDERED: PANT40TA2 PO (10:28)
[2017-07-19] MEDS ORDERED: COLA100C5 PO (10:30)
--- NOTE | 2017-07-19 18:15 | DS.PDOC ---
Discharge Summary General Date of Admission Jul 16, 2017 at 02:35 Date of Discharge Jul 19, 2017 Primary Care Physician: Mohan Gutierrez Discharge Summary PROCEDURES PERFORMED DURING STAY: 07/16/2017 Echocardiogram 1. Study is of good technical quality. 2. Normal left ventricular (LV) size and systolic function, grade 1 diastolic dysfunction. 3. Aortic sclerosis resulting in minimal stenosis and mild insufficiency. 4. Trace mitral and tricuspid insufficiency. 5. Probably mildly elevated central venous pressure (CVP) and at least mild and more likely moderate pulmonary hypertension. 6. Mildly dilated ascending aorta (3.8cm). ADMITTING DIAGNOSES: 1. Pancreatitis 2. Duodenitis DISCHARGE DIAGNOSES: 1. Pancreatitis 2. Duodenitis 3. Ileus COMPLICATIONS/CHIEF COMPLAINT: Duodenitis, Pancreatitis. HISTORY OF PRESENT ILLNESS: Patient is a 72 yo male with past medical history significant for HTN and increased intraocular eye pressure presents to the ER with abdominal pain. The pain started yesterday morning, 07/15/17. Just all of a sudden. Patient was not doing anything at the time. 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 Has had bloating and burping for past several days. Asked if he was hydrating, mentioned probably not enough. Denies having pain like this before. Described the pain as "wanting to throw up". Admits to nausea but no vomiting. The pain started upper abdomen and sides but now is mostly lower abdomen. Denies it radiating anywhere. Patient tried cuate seltzer and Rolaids, did not help much. Had a small BM this morning and one yesterday. Denies blood or black stool. Usually goes everyday. Noted that his BMs for past couple days have been smaller than normal. Denies diarrhea. Did not try anything at home for the pain. Has not had much to eat yesterday. Had half cup coffee and half bagel this morning. Last thing he ate was mary anen vickie and slice of toast in the evening yesterday. Has had stomach aches and cramps in the past but usually go away with some pepto bismol, never had discomfort like this. Ct scan of abdomen and pelvis was performed in ER. Showed peripancreatic and duodenal inflammatory stranding with small amount of fluid extending into the pelvis. No evidence of pancreatic abscess or necrosis. Patient received some Percocet in the ER. States that it does help some but still has pain. He also received Zofran in the ER for the nausea. Patient was admitted to hospitalist service HOSPITAL COURSE: The patient was treated for acute pancreatitis Placed NG tube to decompress abdomen was on NPO diet and IV fluids normal saline was given. Patient had a CT scan with iv contrast which showed, the enteric system is without obstruction or further acute inflammatory process. Magnetic resonance cholangiopancreatography (MRCP) of the abdomen did not show any cholelithiasis or obstruction of the biliary system. There was no obstruction of the pancreatic duct system. He empirically started on meropenem. Helicobacter (H.) pylori immunoglobulin G (IgG) is positive and he was Empirically started on clarithromycin, and the patient is already on meropenem and Protonix. Patient had a Dilated appendix with fecal matters in the appendix but No evidence of acute appendicitis on CT scan. Will need a colonoscopy outpatient per. [facility] DISCHARGE MEDICATIONS: Please see below. ALLERGIES: Please see below. PHYSICAL EXAMINATION ON DISCHARGE: VITAL SIGNS: Please see below. GENERAL: Patient is awake, alert and oriented times three, sitting up in the bed in no acute distress HEENT: Normocephalic atraumatic. Moist mucous membranes. CARDIOVASCULAR: S1, S2, regular sinus rhythm. No rubs, murmurs, or gallops are appreciated. RESPIRATORY EXAMINATION: Clear to auscultation bilaterally. No rhonchi or wheezing ABDOMINAL EXAMINATION: Positive bowel sounds in all four quadrants. Slightly distended abdomen which the patients states is improving. No tenderness on soft palpation. No guarding . EXTREMITIES: No peripheral edema appreciated. LABORATORY DATA: Please see below. IMAGIN07/15/17 Abdomen/Pelvis CT Impression: 1. Peripancreatic and duodenal inflammatory stranding with small amount of fluid extending into the pelvis is most compatible with acute pancreatitis/duodenitis. No evidence for drainable collection/abscess, pancreatic necrosis or ischemia. 2. A distended fecal filled appendix measuring 14 mm diameter is identified in the right lower quadrant without significant periappendiceal stranding to suggest acute appendicitis. However, close clinical observation may be warranted. 07/16/2017 Echocardiogram 1. Study is of good technical quality. 2. Normal left ventricular (LV) size and systolic function, grade 1 diastolic dysfunction. 3. Aortic sclerosis resulting in minimal stenosis and mild insufficiency. 4. Trace mitral and tricuspid insufficiency. 5. Probably mildly elevated central venous pressure (CVP) and at least mild and more likely moderate pulmonary hypertension. 6. Mildly dilated ascending aorta (3.8cm). 07/16/17 Abdomen US Impression: Normal appearance to the liver, gallbladder, and right kidney. Pancreas is incompletely evaluated due to interposed bowel gas. Trace fluid adjacent to the gallbladder 07/16/17 Abdomen MRI - Technique: Noncontrast MRCP. Impression: 1. Inflammatory stranding and scattered fluid in the visualized upper abdomen extending along the bilateral pericolic gutters consistent with a history of acute pancreatitis. No drainable collection or obvious cystic lesions are appreciated. 2. Normal appearance to the gallbladder and biliary system without evidence for cholelithiasis or choledocholithiasis. 07/16/17 Chest Xray Impression: 1. No acute cardiopulmonary process. 2. No foreign body identified. 07/16/17 Abdomen Xray Impression: Nonspecific bowel gas pattern. No foreign body identified. PROGNOSIS: Good. ACTIVITY: [As tolerated]. DIET: As tolerated. DISCHARGE PLAN: 1. Acute pancreatitis: The patient is currently improving. Is tolerating 2 gram diet. Empirically has been covered with meropenem which has been stopped on 07/19. Patient is to continue amoxicillin 1 gram twice a day for the next 13 days for coverage of H pylori. Will be discharge with antiobiotics. Magnetic resonance cholangiopancreatography (MRCP) of the abdomen did not show any cholelithiasis or obstruction of the biliary system. There was no obstruction of the pancreatic duct system. The patient does not have any history of any alcohol abuse. At this point, we cannot find the etiology of the pancreatitis. It could be due to a local inflammation of the duodenal wall causing an obstruction of the opening of the pancreatic duct. Will review patient home medication list to rule out medication induced pancreatitis 2. Duodenitis: As was seen on the CT, H pyloric immunoglobulin G has been positive in stool. Immunoglobulin M is current still on process. The patient has been started on a treatment for H pyloric. He is currently on pantoprazole and clindamycin, continue with amoxicillin for 13 more days for triple therapy coverage. Blood cultures are currently negative with no growth for the past 72 hours. 3. History of glaucoma: Will continue home medication. 4. Dilated appendix with fecal matter. There is no sign of appendicitis on a CT scan. The patient was evaluated by Dr. Lew for surgery and, per him, will have a colonoscopy outpatient, which his PCP will refer him. 5. Hypertension: Will continue on the patient's amlodipine and labetalol. Will discharge the patient with a script of labetalol. 6. Leukocytosis: Likely secondary to pancreatitis and duodenitis currently stable at 15.1. Will continue to monitor. Blood cultures have been negative to this date and patient is getting antibiotic coverage. 7. Deep venous thrombosis (DVT) prophylaxis: Patient is ambulating around the room. Denies any chest pain or shortness of breath. The patient does have thromboembolic deterrent stockings (TEDS) orders. 8. GI prophylaxis: The patient is currently on pantoprazole by mouth twice a day 40 mg. 9. Ileus: Currently improving. Passing gas, told patient to ambulate around the halls to help with bloating sensation. The patient hadnt a bowl moment in 2 days, the patient just started eating solid diet, last night encouraged the patient to walk around to help with GI motility. DISCHARGE INSTRUCTIONS: 1. Scripts have been sent pharmacy. ITEMS TO FOLLOWUP ON OUTPATIENT: 1. Follow up with Dr. Lew for colonoscopy outpatient. 2. Follow with PCP in 7 days. 3. Continue Antibiotics outpatient DISCHARGE CONDITION: Stable. TIME SPENT ON DISCHARGE: Greater than 30 minutes. Vital Signs/I&Os Vital Signs Date Time Temp Pulse Resp B/P (MAP) Pulse Ox O2 Delivery O2 Flow Rate FiO2 07/19/17 08:47 87 152/81 07/19/17 08:16 98.8 18 95 Room Air I&O- Last 24 Hours up to 6 AM 07/20/17 05:59 Intake Total 600 ml Balance 600 ml Laboratory Data Labs 24H Laboratory Tests 2 07/19/17 06:29: White Blood Count 14.2H, Red Blood Count 4.08L, Hemoglobin 12.9L, Hematocrit 36.3L, Mean Corpuscular Volume 89.0, Mean Corpuscular Hemoglobin 31.6, Mean Corpuscular Hemoglobin Concent 35.5, Red Cell Distribution Width 12.4, Platelet Count 210, Neutrophils (%) (Auto) 81.1H, Lymphocytes (%) (Auto) 9.4L, Monocytes (%) (Auto) 6.1H, Eosinophils (%) (Auto) 1.9, Basophils (%) (Auto) 0.3, Neutrophils # (Auto) 11.5H, Lymphocytes # (Auto) 1.3L, Monocytes # (Auto) 0.9H, Eosinophils # (Auto) 0.3, Basophils # (Auto) 0.0, Large Unclassified Cells % 1.2 , Large Unclassified Cells # 0.2, Anion Gap 6L, Glomerular Filtration Rate > 60.0, Blood Urea Nitrogen 18, Creatinine 0.70, Sodium Level 139, Potassium Level 3.5, Chloride Level 106, Carbon Dioxide Level 27, Calcium Level 8.3L, Aspartate Amino Transf (AST/SGOT) 26, Alanine Aminotransferase (ALT/SGPT) 24, Alkaline Phosphatase 59, Total Bilirubin 0.8, Total Protein 6.2L, Albumin 2.7L, Albumin/Globulin Ratio 0.77L CBC/BMP Laboratory Tests 07/19/17 06:29 Red Blood Count 4.08 L, Mean Corpuscular Volume 89.0, Mean Corpuscular Hemoglobin 31.6, Mean Corpuscular Hemoglobin Concent 35.5, Red Cell Distribution Width 12.4, Neutrophils (%) (Auto) 81.1 H, Lymphocytes (%) (Auto) 9.4 L, Monocytes (%) (Auto) 6.1 H, Eosinophils (%) (Auto) 1.9, Basophils (%) ( Auto) 0.3, Neutrophils # (Auto) 11.5 H, Lymphocytes # (Auto) 1.3 L, Monocytes # (Auto) 0.9 H, Eosinophils # (Auto) 0.3, Basophils # (Auto) 0.0, Calcium Level 8.3 L, Aspartate Amino Transf (AST/SGOT) 26, Alanine Aminotransferase (ALT/SGPT ) 24, Alkaline Phosphatase 59, Total Bilirubin 0.8, Total Protein 6.2 L, Albumin 2.7 L Microbiology Microbiology 07/16/17 Blood Culture - Preliminary, Resulted No Growth after 72 hours. All specime... 07/16/17 Blood Culture - Preliminary, Resulted No Growth after 72 hours. All specime... Discharge Medications Scheduled Amlodipine Besylate (Amlodipine Besylate) 10 Mg Tab, 10 MG PO QHS, (Reported) Amoxicillin (Amoxicillin) 500 Mg Cap, 1,000 MG PO BID Bimatoprost (Lumigan) 50 Drop/2.5 Ml Niurka, 1 DROP OU QHS, (Reported) Brimonidine Tartrate 0.1% (Alphagan P) 100 Drop/5 Ml Soln, 1 DROP OU BID, ( Reported) Clarithromycin (Biaxin) 250 Mg Tab, 500 MG PO BID Docusate Sodium (Colace) 100 Mg Cap, 100 MG PO DAILY Famotidine (Pepcid) 20 Mg Tab, 20 MG PO BID, (Reported) Labetalol HCl (Labetalol HCl) 200 Mg Tab, 200 MG PO BID, (Reported) Losartan Potassium (Losartan Potassium) 100 Mg Tab, 100 MG PO QHS, (Reported) Pantoprazole Sodium (Pantoprazole Sodium) 40 Mg Tab, 40 MG PO BID Timolol Maleate (Timoptic) 0.5 % Niurka, 1 DROP OU BID, (Reported) Allergies Coded Allergies: No Known Allergies (Unverified , 07/15/17) EKTA TEMPLE DO Jul 19, 2017 18:14
== END 2017-07-19 13:07 | disposition home or self-care (01) | DRG 391 ==
LOC: M ED 20:34 → M ED INP 07-16 02:35 → M MSPAV 07-16 03:00
PROVIDERS: ADMIT Internal Medicine; ATTEND Internal Medicine
DX: K29.80 Duodenitis without bleeding (principal); K85.90 Acute pancreatitis without necrosis or infection, unspecified; K56.7 Ileus, unspecified; I10 Essential (primary) hypertension; H40.9 Unspecified glaucoma; Z79.899 Other long term (current) drug therapy; D72.829 Elevated white blood cell count, unspecified; I08.3 Combined rheumatic disorders of mitral, aortic and tricuspid valves

== ENCOUNTER 2017-09-20 06:39 | Day surgery (SDC) | payer MEDICARE ==
[~2017-09-20] VITALS: Ht 175.3 cm; Wt 78.9 kg
[~2017-09-20 06:39] MED LIST: ALPH0.156 OU; AMLO10TA2 PO; AMOX500C PO; BIAX250T10 PO; BIMA01SOL OU; BRIM1OPD OU; COLA100C5 PO; FAMO20TA PO; HYDR12.55 PO; LABE20TAB PO; LOSA100T36 PO; PANT40TA2 PO; TIMO0.5S4 OU
[2017-09-20] MEDS ORDERED: NS 1,000 ML IV SCH (06:45)
[2017-09-20] MEDS ORDERED: PROPOFOL 200 MG/20 ML VIAL As Ordered ONE ×2 (07:04→08:09)
[2017-09-20] MEDS ORDERED: LIDOCAINE 2% INJ 100 MG/5 ML SDV (FOR ANES.) As Ordered ONE (07:04)
--- NOTE | 2017-09-20 08:28 | ROOR ---
Patient Name: Mauricio Lentz Procedure Date: 09/20/2017 7:26 AM Date of : 1945 Age: 72 Room: [facility] Gender: Male Note Status: Finalized Procedure: Upper GI endoscopy Indications: Abnormal CT of the GI tract, Follow-up of duodenitis Providers: Ru Lew MD Referring MD: JAMES SULLIVAN MD Requesting Provider: Medicines: Monitored Anesthesia Care Complications: No immediate complications. Procedure: Pre-Anesthesia Assessment: - Prior to the procedure, a History and Physical was performed, and patient medications and allergies were reviewed. The patient is competent. The risks and benefits of the procedure and the sedation options and risks were discussed with the patient. All questions were answered and informed consent was obtained. Patient identification and proposed procedure were verified by the physician, the nurse and the anesthesiologist in the endoscopy suite. Mental Status Examination: alert and oriented. Airway Examination: normal oropharyngeal airway and neck mobility. Respiratory Examination: clear to auscultation. CV Examination: normal. Prophylactic Antibiotics: The patient does not require prophylactic antibiotics. Prior Anticoagulants: The patient has taken no previous anticoagulant or antiplatelet agents. ASA Grade Assessment: II - A patient with mild systemic disease. After reviewing the risks and benefits, the patient was deemed in satisfactory condition to undergo the procedure. The anesthesia plan was to use monitored anesthesia care (MAC). Immediately prior to administration of medications, the patient was re-assessed for adequacy to receive sedatives. The heart rate, respiratory rate, oxygen saturations, blood pressure, adequacy of pulmonary ventilation, and response to care were monitored throughout the procedure. The physical status of the patient was re-assessed after the procedure. The Endoscope was introduced through the mouth, and advanced to the third part of duodenum. The upper GI endoscopy was accomplished without difficulty. The patient tolerated the procedure well. Findings: The examined esophagus was normal. The Z-line was regular and was found 41 cm from the incisors. Bilious fluid was found in the gastric body. The third portion of the duodenum was normal. A small hiatal hernia was present. Impression: - Normal esophagus. - Z-line regular, 41 cm from the incisors. - Bilious gastric fluid. - Normal third portion of the duodenum. - No specimens collected. Recommendation: - Discharge patient to home (ambulatory). Ru Lew MD Ru Lew MD 09/20/2017 8:27:52 AM This report has been signed electronically. Number of Addenda: 0 Note Initiated On: 09/20/2017 7:26 AM Estimated Blood Loss: Estimated blood loss: none.
--- NOTE | 2017-09-20 08:32 | ROOR ---
Patient Name: Mauricio Lentz Procedure Date: 09/20/2017 7:27 AM Date of : 1945 Age: 72 Room: [facility] Gender: Male Note Status: Finalized Procedure: Colonoscopy Indications: Screening for colorectal malignant neoplasm Providers: Ru Lew MD Referring MD: JAMES SULLIVAN MD Requesting Provider: Medicines: Monitored Anesthesia Care Complications: No immediate complications. Procedure: Pre-Anesthesia Assessment: - Prior to the procedure, a History and Physical was performed, and patient medications and allergies were reviewed. The patient is competent. The risks and benefits of the procedure and the sedation options and risks were discussed with the patient. All questions were answered and informed consent was obtained. Patient identification and proposed procedure were verified by the nurse and the anesthesiologist in the endoscopy suite. Mental Status Examination: alert and oriented. Airway Examination: normal oropharyngeal airway and neck mobility. Respiratory Examination: clear to auscultation. CV Examination: normal. Prophylactic Antibiotics: The patient does not require prophylactic antibiotics. Prior Anticoagulants: The patient has taken no previous anticoagulant or antiplatelet agents. ASA Grade Assessment: II - A patient with mild systemic disease. After reviewing the risks and benefits, the patient was deemed in satisfactory condition to undergo the procedure. The anesthesia plan was to use monitored anesthesia care (MAC). Immediately prior to administration of medications, the patient was re-assessed for adequacy to receive sedatives. The heart rate, respiratory rate, oxygen saturations, blood pressure, adequacy of pulmonary ventilation, and response to care were monitored throughout the procedure. The physical status of the patient was re-assessed after the procedure. The Colonoscope was introduced through the anus and advanced to the cecum, identified by appendiceal orifice and ileocecal valve. The colonoscopy was performed without difficulty. The patient tolerated the procedure well. The quality of the bowel preparation was excellent. Findings: The perianal and digital rectal examinations were normal. A few medium-mouthed diverticula were found in the sigmoid colon. A diminutive polyp was found in the rectum. The polyp was flat. The polyp was removed with a jumbo cold forceps. Resection and retrieval were complete. Estimated blood loss was minimal. No additional abnormalities were found on retroflexion. Impression: - Diverticulosis in the sigmoid colon. - One diminutive polyp in the rectum, removed with a jumbo cold forceps. Resected and retrieved. Recommendation: - Discharge patient to home (ambulatory). - High fiber diet. - Repeat colonoscopy in 10 years for surveillance based on pathology results. Ru Lew MD Ru Lew MD 09/20/2017 8:31:50 AM This report has been signed electronically. Number of Addenda: 0 Note Initiated On: 09/20/2017 7:27 AM Estimated Blood Loss: Estimated blood loss was minimal.
[2017-09-20 08:42] VITALS: BP 100/65
[2017-09-20] MEDS ORDERED: METOCLOPRAMIDE INJ 10MG/2ML VIAL (J2765) As Ordered ONE (15:30)
== END 2017-09-20 08:43 | disposition home or self-care (01) ==
LOC: M OPP 06:39
PROVIDERS: ATTEND Surgery
DX: Z12.11 Encounter for screening for malignant neoplasm of colon (principal); K57.30 Diverticulosis of large intestine without perforation or abscess without bleeding; K62.1 Rectal polyp; R93.3 Abnormal findings on diagnostic imaging of other parts of digestive tract; K29.80 Duodenitis without bleeding; I10 Essential (primary) hypertension; E78.00 Pure hypercholesterolemia, unspecified; K21.9 Gastro-esophageal reflux disease without esophagitis; K44.0 Diaphragmatic hernia with obstruction, without gangrene; Z80.0 Family history of malignant neoplasm of digestive organs; Z79.2 Long term (current) use of antibiotics; Z79.899 Other long term (current) drug therapy; Z87.19 Personal history of other diseases of the digestive system; Z87.891 Personal history of nicotine dependence
CPT/HCPCS: 43235; 45380; 88305; J2765